=== PATIENT | female | born 2000 | race Hispanic/Latino ===

== ENCOUNTER 2021-12-17 20:04 | Emergency (ER) | payer OTHER ==
[2021-12-17] VITALS (13 sets, daily range): BP systolic 108–127; BP diastolic 70–91
[2021-12-17 21:55] LABS: URINE BILIRUBIN - DIPSTICK NEGATIVE (NEGATIVE); URINE BLOOD DIPSTICK NEGATIVE (NEGATIVE); URINE COLOR YELLOW; URINE GLUCOSE - DIPSTICK NEGATIVE (NEGATIVE); URINE KETONE 15 mg/dL (NEGATIVE); URINE LEUK ESTERASE NEGATIVE (NEGATIVE); URINE PROTEIN - DIPSTICK NEGATIVE (NEG-TRACE); URINE SPECIFIC GRAVITY >=1.030; URINE UROBILINOGEN - DIPSTICK 0.2 E.U./dL (0.2)
[2021-12-17 21:58] LABS: URINE NITRITE - DIPSTICK NEGATIVE (Negative)
[2021-12-17 22:00] LABS: HEMATOCRIT 39.2 % (37.0-47.0); HEMOGLOBIN 13.4 g/dl (12.0-16.0); IMMATURE GRANULOCYTES 0.3 % (0.0-5.0); MEAN CELL VOLUME 80.3 fL CALC (80.0-100.0); MEAN CORPUSCULAR HGB 27.5 pG CALC (26.0-32.0); MEAN CORPUSCULAR HGB CONC 34.2 g/dL CAL (32.0-36.0); NEUT# 5.88 thou/uL (2.00-7.15); RED BLOOD COUNT 4.88 mill/uL (4.20-5.60); RED CELL DISTRI WIDTH 12.8 % (11.5-15.5)
[2021-12-17 22:03] LABS: ALBUMIN 4.4 g/dL (3.2-5.0); ALKALINE PHOSPHATASE 97 u/l (38-126); ANION GAP 13 (6-22 (CALC)); BILIRUBIN, TOTAL 0.4 mg/dL (0.0-1.4); BUN 12 mg/dL (7-17); BUN/CREATININE RATIO 16 (12-20 (CALC)); CARBON DIOXIDE 23 mmol/l (22-30); CHLORIDE 106 mmol/l (95-108); CREATININE 0.7 mg/dL (0.5-1.0); GFR FOR AFR.AMER. > 60 ML/MIN (>=60 (CALC)); GFR OTHER RACES > 60 ML/MIN (>=60 (CALC)); POTASSIUM 3.7 mmol/l (3.5-5.1); SGOT/AST 30 u/l (14-36); SODIUM 138 mmol/l (137-146); TOTAL PROTEIN 7.3 g/dL (6.3-8.2)
[2021-12-17 22:20] LABS: BETA-HCG, QUANT(RESULT NUMBER) 142 mIU/mL
[2021-12-18] VITALS: BP 124/85
== END 2021-12-18 00:09 | disposition home or self-care (01) | DRG 833 ==
LOC: ED 20:04
PROVIDERS: Emergency Medicine
DX: O20.0 Threatened abortion (principal)